=== PATIENT | female | born 1960 | race Caucasian/White ===

== ENCOUNTER → 2018-08-01 | Outpatient (CLI) | payer BC, OTHER ==
[~2018-08-01] MED LIST: ACCOLATE10 MG PO; ALENDRONATE; OMEPRAZOLE; ZANTAC 150MG T150 M1 PO
== END ==
LOC: NUC 07-17 13:36
DX: R10.11 Right upper quadrant pain (principal)

== ENCOUNTER → 2021-01-20 | Outpatient (CLI) | payer OTHER | LOC: CAT 12:57 | PROVIDERS: ATTEND Family Medicine | DX: Z13.6 Encounter for screening for cardiovascular disorders (principal) ==